=== PATIENT | male | born 1945 | race Caucasian/White ===

== ENCOUNTER 2017-06-10 11:44 | Emergency (ER) | payer BC, MEDICARE ==
[2017-06-10 12:19] VITALS: BP 153/83
--- NOTE | 2017-06-10 12:41 | UC ---
Knee Pain HPI - HPI Summary HPI Summary: 71 YO MALE WITH RIGHT KNEE PAIN X 1 WEEK RAMIRO SOME RELIEF WITH MOTRIN NO SWELLING - History of Current Complaint Chief Complaint: UCLowerExtremity Stated Complaint: KNEE PAIN Time Seen by Provider: 06/10/17 12:35 Hx Obtained From: Patient Onset/Duration: Gradual Onset, Lasting Weeks - 1 Severity Initially: Mild Severity Currently: Moderate Pain Intensity: 4 - WWORSE WITH WT BEARING Character: Sharp, Aching Aggravating Factor(s): Movement, Weight Bearing Alleviating Factor(s): Rest Able to Bear Weight: Yes - Allergies/Home Medications Allergies/Adverse Reactions: Allergies Allergy/AdvReac Type Severity Reaction Status Date / Time No Known Allergies Allergy Verified 03/05/17 11:21 PMH/Surg Hx/FS Hx/Imm Hx Previously Healthy: Yes - Surgical History Surgical History: None - Family History Known Family History: Positive: Hypertension - Social History Alcohol Use: Daily Substance Use Type: None Smoking Status (MU): Never Smoked Tobacco Review of Systems Constitutional: Negative Skin: Negative Eyes: Negative ENT: Negative Respiratory: Negative Cardiovascular: Negative Gastrointestinal: Negative Genitourinary: Negative Motor: Negative Neurovascular: Negative Musculoskeletal: Negative Neurological: Negative Psychological: Negative Is Patient Immunocompromised?: No All Other Systems Reviewed And Are Negative: Yes Physical Exam Triage Information Reviewed: Yes Appearance: Well-Appearing, No Pain Distress, Well-Nourished Vital Signs: Initial Vital Signs Temp 97.9 F 06/10/17 12:12 Pulse 88 06/10/17 12:12 Resp 16 06/10/17 12:12 BP 153/83 06/10/17 12:12 Pulse Ox 97 06/10/17 12:12 Eyes: Positive: Conjunctiva Clear ENT: Positive: Hearing grossly normal. Negative: Nasal congestion, Nasal drainage, Trismus, Muffled voice, Hoarse voice Neck: Positive: Supple, Nontender Respiratory: Positive: Lungs clear, Normal breath sounds, No respiratory distress Cardiovascular: Positive: RRR, No Murmur Abdomen Description: Positive: Nontender Musculoskeletal: Positive: ROM Intact, No Edema Neurological: Positive: Alert Psychological Exam: Normal Diagnostics - Radiology No standard instances Xray Interpretation: No Acute Changes Radiology Interpretation Completed By: Radiologist Knee Pain Course/Dx - Differential Dx/Diagnosis Provider Diagnoses: RIGHT KNEE PAIN, ? MENISCAL TEAR Discharge - Discharge Plan Condition: Stable Disposition: HOME Patient Education Materials: Knee Pain (ED) Referrals: Haylie Arrington MD [Medical Doctor] - As Soon As Possible Additional Instructions: XR NORMAL ? MENISCUS TEAR BASED ON HISTORY
--- NOTE | 2017-06-10 13:21 | RAD ---
INDICATION: Sharp posterior knee pain one week after lifting COMPARISON: None TECHNIQUE: 4 view radiograph of the right knee. FINDINGS: The visualized bones are well-corticated and properly aligned. The joint spaces are properly maintained. There is no radiographic evidence of joint effusion. There is no acute fracture, dislocation or other focal bony abnormality. IMPRESSION: Normal knee radiograph as described above. If the patient's symptoms persist, follow-up imaging is recommended.
== END 2017-06-10 13:45 | disposition home or self-care (01) ==
LOC: UCEAST 11:44
DX: M25.561 Pain in right knee (principal)
CPT/HCPCS: 99212; G0463

== ENCOUNTER 2018-05-17 11:20 | Emergency (ER) | payer MEDICARE, BC ==
--- OUTSIDE RECORDS SUMMARY | 2018-05-17 11:54 | XMS REPORT | Continuity of Care Document ---
:1945 External Reference #:[id number] Author Name Mileslorena Kyrie Care Team Providers Name Role Phone Alf Cortez MD Primary Care Physician Unavailable Payers Type Date Identification Numbers Payment Provider Subscriber Policy Number: [id number] Medicare Francesco Mckenzie PayID: [id number] [address] [place] [address] Policy Number: [id number] [facility] Phyllis Mckenzie PayID: [id number] [address] [place] [address] Expires: 2017 Policy Number: [id number] [facility] Francesco Mckenzie Group Number: [id number] [address] PayID: [id number] [place] [address] Advance Directives Description No Information Available Problems Date Description Provider Status Onset: 06/16/2017 Localized, primary osteoarthritis Qamar Madison MD Active Onset: 06/16/2017 Knee joint effusion Qamar Madison MD Active Family History Description No Information Available Social History Type Date Description Comments Sex Unknown Lives With Spouse Occupation Currently Working Occupation Professor ETOH Use Currently consumes alcohol Tobacco Use Start: Unknown Patient has never smoked Smoking Status Reviewed: 05/12/18 Patient has never smoked Exercise Type/Frequency Exercises regularly Allergies, Adverse Reactions, Alerts Description No Known Drug Allergies Medications Medication Date Status Form Strength Qnty SIG Indications Ordering Provider Percocet Active Tablets 5-325mg 14tabs / to 1 M54.42 Dirk Jocelyne, 018 by mouth M.D. every 8 hours as needed pain, use less as soon as able No Active Hx Unknown Medications 018 - 11/28/2 018 Immunizations Description No Information Available Vital Signs Date Vital Result Comment 05/12/2018 9:14am Height 70 inches 5'10" Weight 225.00 lb Respiratory Rate 16 /min Body Temperature 97.3 F BMI (Body Mass Index) 32.3 kg/m2 07/16/2017 8:54am Height 70 inches 5'10" Heart Rate 81 /min BP Systolic 142 mmHg BP Diastolic 80 mmHg Respiratory Rate 17 /min Body Temperature 97.0 F Pain Level 2 06/16/2017 9:18am Height 70 inches 5'10" Weight 231.00 lb w/ shoes Heart Rate 68 /min reg BP Systolic Sitting 130 mmHg Lue, lg cuff BP Diastolic Sitting 84 mmHg Lue, lg cuff Respiratory Rate 16 /min Body Temperature 97.0 F tympanic Pain Level 2 right knee BMI (Body Mass Index) 33.1 kg/m2 Results Description No Information Available Procedures Description No Information Available Encounters Type Date Location Provider Dx Diagnosis Office Visit 05/12/2018 Orthopedic Rajinder Casanova M.D. M54.42 Lumbago with 9:00a [facility], left side Office Visit 07/16/2017 Orthopedic Qamar Madison MD M25.461 Effusion, right 8:45a [facility] M17.11 Unilateral primary osteoarthritis, right knee M25.561 Pain in right knee Office Visit 06/16/2017 9:00a Orthopedic Qamar Madison M25.461 Effusion, right [facility] Carvajal M17.11 Unilateral primary osteoarthritis, right knee M25.561 Pain in right knee Office Visit 08/20/2010 2:00p Orthopedic Vinh Bunch 844.9 Sprains [facility] Knee [facility] Leg Unspec Office Visit 07/29/2010 2:00p Orthopedic Matt Alejandre4.9 [facility] Strains Knee & Leg Unspec Office Visit 07/23/2010 1:00p Matt Harris4.9 [facility] JERNIG[facility]-C Strains Knee & Leg Unspec Plan of Treatment 05/12/2018 - Rajinder Casanova M.D.M54.42 Lumbago with sciatica, left sideNew Medication:Percocet 5-325 mg - 1/2 to 1 by mouth every 8 hours as needed pain, use less as soon as ableNew Therapy:Physical TherapyReferral:Chandra Wu MD , Interventional Pain MedicDimopoMichelle junior MD, Surgery, NeurologicalFollow up:Follow up: O/V after MRI lumbaf spine Rest at home OK to use some ibuprofen
--- NOTE | 2018-05-17 12:38 | ED ---
Back Pain - HPI Summary HPI Summary: Pt. presenting to ER after being referred by Dr. Ponce, neurosx, for pain control. Pt. states he has a hx of chronic back pain that has become worse over the last 2 weeks. Denies recent injury. Pt. states pain was initially in left hip and saw orthopedics. He had a negative hip xray. Ortho ordered lumbar MRI and pt. referred to neurosx. MRI from 05/15/18 shows diffuse DDD and foraminal narrowing. Pt. denies numbness, tingling or weakness in legs. Denies fever, abd. pain, bowel or bladder incontinence or retention. Pt. notes he was rx percocet from ortho but state he does not feel any improvement so stopped taking it. Pt. has been taking motrin. Pt. states he feels a lot of spasm in low back. He denies past medical hx. Sxs are mild in severity. Sitting and standing make sxs worse. Lying on left side improves pain. - History of Current Complaint Chief Complaint: EDBackInjuryPain Stated Complaint: LEG AND HIP PAIN Time Seen by Provider: 05/17/18 12:09 Hx Obtained From: Patient Pain Intensity: 7 - Allergies/Home Medications Allergies/Adverse Reactions: Allergies Allergy/AdvReac Type Severity Reaction Status Date / Time No Known Allergies Allergy Verified 05/17/18 11:33 PMH/Surg Hx/FS Hx/Imm Hx Previously Healthy: Yes Endocrine/Hematology History: Denies: Hx Diabetes, Hx Thyroid Disease Cardiovascular History: Denies: Hx Hypertension, Hx Pacemaker/ICD Respiratory History: Denies: Hx Asthma, Hx Chronic Obstructive Pulmonary Disease (COPD) GI History: Denies: Hx Ulcer History: Denies: Hx Renal Disease Sensory History: Denies: Hx Hearing Aid Psychiatric History: Denies: Hx Panic Disorder Infectious Disease History: No Infectious Disease History: Denies: Hx Clostridium Difficile, Hx Hepatitis, Hx Human Immunodeficiency Virus (HIV), Hx of Known/Suspected MRSA, Hx Shingles, Hx Tuberculosis, Hx Known/ Suspected VRE, Hx Known/Suspected VRSA, History Other Infectious Disease, Traveled Outside the [place] in Last 30 Days - Family History Known Family History: Positive: Hypertension - Social History Occupation: Retired Lives: With Family Alcohol Use: Daily Alcohol Amount: 2 beers Substance Use Type: Reports: None Smoking Status (MU): Never Smoked Tobacco Review of Systems Constitutional: Negative Negative: Fever, Chills Gastrointestinal: Negative Genitourinary: Negative Positive: Other - Left low back pain Neurological: Negative Negative: Weakness, Paresthesia, Numbness All Other Systems Reviewed And Are Negative: Yes Physical Exam Triage Information Reviewed: Yes Vital Signs On Initial Exam: Initial Vitals Temp Pulse Resp BP Pulse Ox 97.1 F 65 16 170/98 100 05/17/18 11:27 05/17/18 11:27 05/17/18 11:27 05/17/18 11:27 05/17/18 11:27 Vital Signs Reviewed: Yes Appearance: Positive: Well-Appearing - Pt. lying on bed on his left side. present. Skin: Positive: Warm, Dry Head/Face: Positive: Normal Head/Face Inspection Eyes: Positive: Normal, EOMI Neck: Positive: Supple Musculoskeletal: Positive: Other - 5/5 strength in bilateral LEs. No midline tenderness. Mild pain over left SI joint. Neurological: Positive: Normal, CN Intact II-III Psychiatric: Positive: Affect/Mood Appropriate Diagnostics - Vital Signs Vital Signs Temp Pulse Resp BP Pulse Ox 05/17/18 11:27 97.1 F 65 16 170/98 100 - Laboratory Lab Statement: Any lab studies that have been ordered have been reviewed, and results considered in the medical decision making process. Back Pain Course/Dx - Course Course Of Treatment: Pt. referred to ER by neurosx for pain control. He is afebrile. Pt. has no neurosensory deficits of evidence of cauda equina syndrome. Pt. states his back pain has improved since being at Dr. Nuñez' office. Discussed pain control with pt. Pt. is upset to be in the ER and states that he has been having same pain for the last 2 weeks. Pt. states he is getting set up with pain management this week. I spoke with Dr. Nuñez and he states that in office pt. was in extreme pain and could barely walk and that is why he sent him to the ED. Dr. Nuñez has no recommendations as far as pain control or treatment. Discussed conversation with pt. Pt. agrees on an injection of toradol and valium for a muslce relaxant. Small rx given. Advised warm compress and avoid heavy lifting. Pt. will f.u with neurosx and pain management as scheduled. Will return to ED if sxs change or worsen. 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 - Diagnoses Differential Diagnosis/HQI/PQRI: Positive: Aneurysm, Arthritis, Cauda Equina Syndrome, Compressive Cord Syndrome, Herniated Disc, Strain, Sprain Provider Diagnoses: Degenerative disc disease, Low back pain Discharge - Sign-Out/Discharge Documenting (check all that apply): Patient Departure - Discharge Plan Condition: Good Disposition: HOME Prescriptions: Diazepam TAB(NF) [Valium TAB(NF)] 2 mg PO TID PRN #12 tab MDD 3 tablets PRN Reason: Spasms - Back Patient Education Materials: Chronic Back Pain (DC) Referrals: Alf Cortez MD [Primary Care Provider] - Additional Instructions: Follow up with pain management and neurosurgery as scheduled Take Valium as directed for muscle spasm Continue anti-inflammatory such as ibuprofen as directed Apply warm compresses to back Return to ER for increased pain, leg numbness or weakness, bowel or bladder incontinence or retention - Billing Disposition and Condition Condition: GOOD Disposition: Home
[2018-05-17] MEDS ORDERED: Ketorolac INJ* 60 MG/2 ML VIAL IM ONE (12:56)
[2018-05-17] MEDS: Diazepam TAB(*) 5 MG PO ONE ×2 (13:03→13:06)
[2018-05-17 13:16] VITALS: BP 166/102
== END 2018-05-17 13:15 | disposition home or self-care (01) ==
LOC: ED 11:20
DX: M54.5 Low back pain (principal); M51.36 Other intervertebral disc degeneration, lumbar region
CPT/HCPCS: 96372; 99282; A9270-GY; J1885